=== PATIENT | female | born 1960 | race Caucasian/White ===

== ENCOUNTER 2016-03-31 14:30 | Outpatient (RCR) | payer BC, OTHER ==
--- OUTSIDE RECORDS SUMMARY | 2016-01-13 15:06 | XMS REPORT | Continuity of Care Document ---
Author Author [facility] Organization [facility] Address Unknown Phone Unavailable Care Team Providers Care Family Service Assistant Name Role Phone NO, LOCAL PHYSICIAN PCP Unavailable Insurance Providers Payer Name Policy Number Subscriber Name Relationship [facility] [id number] Barbie Singh 01 Advance Directives Directive Response Recorded Date/Time Advance Directives No 08/31/15 6:49pm Health Care Power of Certified Flight Instructor No 08/31/15 6:49pm Organ Donor No 08/31/15 6:49pm Resuscitation Status Full Code 08/31/15 6:49pm Chief Complaint and Reason for Visit Chief Complaint RESP FAILURE/HYPOVENTILATION SYND/LBBB/CHEST PAIN Reason for Visit Anemia Edema Hyperglycemia Hypoventilation syndrome LBBB (left bundle branch block) Morbid obesity Respiratory failure Uncontrolled hypertension Problems Active Problems Medical Problem Onset Date Status Anemia Unknown Acute Edema Unknown Acute Hyperglycemia Unknown Acute Hypoventilation syndrome Unknown Acute LBBB (left bundle branch block) Unknown Acute Morbid obesity Unknown Acute Respiratory failure Unknown Acute Uncontrolled hypertension Unknown Acute Medications Current Home Medications Medication Dose Units Route Directions Days/Qty Instructions Start Date Lisinopril 20 Mg 20 Mg Oral Daily@0900 30 09/02/15 Aspirin 325 Mg 325 Mg Oral Daily 1 09/02/15 Potassium Chloride 20 Meq 20 Meq Oral Daily@0700 30 09/02/15 Furosemide 40 Mg 40 Mg Oral Daily 60 09/02/15 Past Home Medications Medication Directions Ordered Status Hctz/Lisinopril (Zestoretic) 1 Tab Tablet, 1 Each Oral Daily 12/18/09 Discontinued Metformin Hcl (Glucophage) 1,000 Mg Tablet, 1000 Mg Oral Twice A Day Discontinued Omeprazole 20 Mg Capsule.dr, 20 Mg Oral Daily 12/18/09 Discontinued Diltiazem Hcl (Cardizem Cd) 120 Mg Cap.sr.24h, 120 Mg Oral Daily 12/18/09 Discontinued Pioglitazone Hcl 30 Mg Tab, 30 Mg Oral Daily 12/18/09 Discontinued Meloxicam (Mobic) 15 Mg Tablet, 15 Mg Oral Daily 12/18/09 Discontinued Tramadol Hcl 50 Mg Tab, 50 Mg Oral Every 6 Hours as needed 12/18/09 Discontinued Valsartan 320 Mg Tablet, 320 Mg Oral Daily 12/18/09 Discontinued Nebivolol Hcl 5 Mg Tablet, 1 Each Oral Daily 02/10/10 Discontinued Losartan Potassium 100 Mg Tablet, 100 Mg Oral Daily 02/10/10 Discontinued Simvastatin 20 Mg Tablet, 20 Mg Oral Daily 02/10/10 Discontinued Social History Social History Problem Response Recorded Date/Time Alcohol Use Past History 08/31/2015 6:55pm Recreational Drug Use No 08/31/2015 6:55pm Recent Foreign Travel No 08/31/2015 6:55pm Recent Infectious Disease Exposure No 08/31/2015 6:55pm Hospitalization with Isolation Denies 09/02/2015 12:28pm Sexually Transmitted Disease No 08/31/2015 6:55pm HIV/AIDS No 08/31/2015 6:55pm Smoking Status Former Smoker 08/31/2015 6:52pm Do you dip or chew tobacco? No 08/31/2015 2:13pm Query Response Start Date Stop Date Smoking Status Former Smoker Hospital Discharge Instructions Patient Instructions Physician Instructions Plan of Care/Instructions/FU: Use oxygen by nasal cannula as previously arranged. Medications and treatments as detailed in the discharge sequence Appointment with Dr. Caal in approximately one month Activity as Tolerated: Yes Goal: Maintenance at home Discharge Diet: Regular Diet Return to The Hospital For: Decline in performance Plan of Care Discharge Date 09/02/15 11:50am Disposition 01 HOME, SELF-CARE Instructions/Education Provided Acute Respiratory Distress Syndrome (DC) Prescriptions See Medication Section Additional Instructions/Education Follow up with Dr. Caal on in 1-2 weeks. Please call his office to schedule an appointment. The phone number is [phone]. Care Plan and Goals See Discharge Instructions Section Functional Status Query Response Date Recorded Patient Orientation Person Place Time Situation September 02, 2015 12:28pm Comprehension Ability Understands Concepts September 02, 2015 8:40am Allergies, Adverse Reactions, Alerts No known allergies. Immunizations Name Given Type Hepatitis A No Historical Hepatitis B No Historical Tetanus Booster (TDap) Unknown Historical Vital Signs Acute Vital Signs Vital Response Date/Time Temperature (Fahrenheit) 98.1 degrees F (97.6 - 99.5) 09/02/2015 8:00am Temperature (Calculated Celsius) 36.38157 degrees C (36.4 - 37.5) 09/02/2015 8:00am Temperature Source Tympanic 09/02/2015 8:00am Pulse Rate (adult) 84 bpm (60 - 90) 09/02/2015 8:00am Respiratory Rate 18 bpm (12 - 24) 09/02/2015 8:00am O2 Sat by Pulse Oximetry 96 % (88 - 100) 09/02/2015 8:40am Blood Pressure 135/74 mm Hg 09/02/2015 8:00am Blood Pressure Mean 94 mm Hg 09/02/2015 8:00am Pain Pain Intensity 0 09/02/2015 8:00am Pain Pain Intensity 0 09/02/2015 8:00am Height (Feet) 5 feet 08/31/2015 7:08pm Height (Inches) 3.00 inches 08/31/2015 7:08pm Height (Calculated Centimeters) 160.749462 cm 08/31/2015 7:08pm Weight (Pounds) 247 pounds 09/02/2015 5:50am Weight (Ounces) 2.4 oz 09/02/2015 5:50am Weight (Calculated Grams) 134790.355 gm 09/02/2015 5:50am Weight (Calculated Kilograms) 112.961592 kilograms 09/02/2015 5:50am Calculated BMI 44.1 08/31/2015 7:08pm Results Laboratory Results Test Name Result Units Flags Reference Collection Date/Time Result Date/ Time Comments White Blood Count 8.9 10^3/uL 4.3-11.0 09/01/2015 5:14am 09/01/2015 5: 27am Red Blood Count 3.90 10^6/uL L 4.35-5.85 09/01/2015 5:14am 09/01/2015 5: 27am Hemoglobin 10.6 G/DL L 11.5-16.0 09/01/2015 5:09/01/2015 5:27am Hematocrit 34 % L 35-52 09/01/2015 5:09/01/2015 5:27am Mean Corpuscular Volume 86 FL 80-99 09/01/2015 5:09/01/2015 5: 27am Mean Corpuscular Hemoglobin 27 PG 25-34 09/01/2015 5:09/01/2015 5: 27am Mean Corpuscular Hemoglobin Concent 32 G/DL 32-36 09/01/2015 5:07/2015 5:27am Red Cell Distribution Width 18.6 % H 10.0-14.5 09/01/2015 5:2015 5:27am Platelet Count 262 10^3/uL 130-400 09/01/2015 5:09/01/2015 5:27am Mean Platelet Volume 11.8 FL H 7.4-10.4 09/01/2015 5:09/01/2015 5: 27am Neutrophils (%) (Auto) 93 % H 42-75 09/01/2015 5:09/01/2015 5:27am Lymphocytes (%) (Auto) 6 % L 12-44 09/01/2015 5:09/01/2015 5:27am Monocytes (%) (Auto) 1 % 0-12 09/01/2015 5:09/01/2015 5:27am Eosinophils (%) (Auto) 0 % 0-10 09/01/2015 5:09/01/2015 5:27am Basophils (%) (Auto) 0 % 0-10 09/01/2015 5:09/01/2015 5:27am Neutrophils # (Auto) 8.2 X 10^3 H 1.8-7.8 09/01/2015 5:09/01/2015 5: 27am Lymphocytes # (Auto) 0.5 X 10^3 L 1.0-4.0 09/01/2015 5:09/01/2015 5: 27am Monocytes # (Auto) 0.1 X 10^3 0.0-1.0 09/01/2015 5:09/01/2015 5: 27am Eosinophils # (Auto) 0.0 10^3/uL 0.0-0.3 09/01/2015 5:14am 09/01/2015 5 :27am Basophils # (Auto) 0.0 10^3/uL 0.0-0.1 09/01/2015 5:14am 09/01/2015 5: 27am Neutrophils % (Manual) 95 % 09/01/2015 5:am 09/01/2015 5:43am Band Neutrophils 0 % 09/01/2015 5:14am 09/01/2015 5:43am Lymphocytes % (Manual) 5 % 09/01/2015 5:14am 09/01/2015 5:43am Monocytes % (Manual) 0 % 09/01/2015 5:am 09/01/2015 5:43am Eosinophils % (Manual) 0 % 09/01/2015 5:14am 09/01/2015 5:43am Basophils % (Manual) 0 % 09/01/2015 5:am 09/01/2015 5:43am Anisocytosis SLIGHT 09/01/2015 5:am 09/01/2015 5:43am Prothrombin Time 13.5 SEC 12.2-14.7 08/31/2015 2:15pm 08/31/2015 2: 35pm INR Comment 1.1 0.8-1.4 08/31/2015 2:15pm 08/31/2015 2:35pm INTERPRETIVE DATA SUGGESTED THERAPEUTIC RANGE FOR INR'S: VENOUS THROMBOSIS, PULMONARY EMBOLISM, OR PREVENTION OF SYSTEMIC EMBOLISM (EG. IN ATRIAL FIBRILLATION): 2.0 - 3.0 MECHANICAL PROSTHETIC HEART VALVES: 2.5 - 3.5* *NOTE: INR'S UP TO 4.5 MAY BE NECESSARY IN SELECTED GROUPS OF HIGH RISK PATIENTS. [employer] CONSENSUS CONFERENCE ON ANTITHROMBOTIC THERAPY (2000). Activated Partial Thromboplast Time 31 SEC 24-35 08/31/2015 2:15pm 06/2015 2:35pm Urine Color YELLOW 08/31/2015 3:25pm 08/31/2015 3:42pm Urine Clarity CLEAR 08/31/2015 3:25pm 08/31/2015 3:42pm Urine pH 6 5-9 08/31/2015 3:25pm 08/31/2015 3:42pm Urine Specific [place] 1.020 1.016-1.022 08/31/2015 3:25pm 2015 3:42pm Urine Protein 2+ * NEGATIVE 08/31/2015 3:25pm 08/31/2015 3:42pm Urine Glucose (UA) NEGATIVE NEGATIVE 08/31/2015 3:25pm 08/31/2015 3: 42pm Urine RBC (Auto) NEGATIVE NEGATIVE 08/31/2015 3:25pm 08/31/2015 3: 42pm Urine Ketones NEGATIVE NEGATIVE 08/31/2015 3:25pm 08/31/2015 3:42pm Urine Nitrite NEGATIVE NEGATIVE 08/31/2015 3:25pm 08/31/2015 3:42pm Urine Bilirubin NEGATIVE NEGATIVE 08/31/2015 3:25pm 08/31/2015 3: 42pm Urine Urobilinogen 1 MG/DL NORMAL 08/31/2015 3:25pm 08/31/2015 3:42pm Urine Leukocyte Esterase 1+ * NEGATIVE 08/31/2015 3:25pm 08/31/2015 3: 42pm Urine RBC NONE /HPF 08/31/2015 3:25pm 08/31/2015 3:42pm Urine WBC NONE /HPF 08/31/2015 3:25pm 08/31/2015 3:42pm Urine Bacteria NEGATIVE /HPF 08/31/2015 3:25pm 08/31/2015 3:42pm Urine Squamous Epithelial Cells 5-10 /HPF 08/31/2015 3:25pm 2015 3:42pm Urine Crystals NONE /LPF 08/31/2015 3:25pm 08/31/2015 3:42pm Urine Casts NONE /LPF 08/31/2015 3:25pm 08/31/2015 3:42pm Urine Mucus NEGATIVE /LPF 08/31/2015 3:25pm 08/31/2015 3:42pm Urine Culture Indicated NO 08/31/2015 3:25pm 08/31/2015 3:42pm Sodium Level 140 MMOL/L 135-145 09/01/2015 5:14am 09/01/2015 5:46am Potassium Level 4.0 MMOL/L 3.6-5.0 09/01/2015 5:14am 09/01/2015 5:46am Chloride Level 102 MMOL/L 98-107 09/01/2015 5:14am 09/01/2015 5:46am Carbon Dioxide Level 25 MMOL/L 21-32 09/01/2015 5:09/01/2015 5: 46am Anion Gap 13 MMOL/L 5-14 09/01/2015 5:09/01/2015 5:46am Blood Urea Nitrogen 20 MG/DL H 7-18 09/01/2015 5:1409/01/2015 5:46am Creatinine 1.39 MG/DL H 0.60-1.30 09/01/2015 5:09/01/2015 5:46am BUN/Creatinine Ratio 09/01/2015 5:09/01/2015 5:46am Estimat Glomerular Filtration Rate 40 09/01/2015 5:09/01/2015 5:46am GFR INTERPRETIVE DATA UNITS FOR ESTIMATED GFR (eGFR): mL/min/1.73 M2 REFERENCE RANGE FOR ESTIMATED GFR (eGFR) eGFR NORMAL eGFR >60 MODERATELY DECREASED eGFR 30-59 SEVERLY DECREASED eGFR 15-29 KIDNEY FAILURE <15 (OR DIALYSIS) Glucose Level 205 MG/DL H 70-105 09/01/2015 5:09/01/2015 5:46am Glucometer 145 MG/DL H 70-110 09/02/2015 6:0409/02/2015 6:23am Calcium Level 9.0 MG/DL 8.5-10.1 09/01/2015 5:09/01/2015 5:46am Magnesium Level 2.2 MG/DL 1.8-2.4 08/31/2015 2:15pm 08/31/2015 2:44pm Total Bilirubin 0.4 MG/DL 0.1-1.0 09/01/2015 5:09/01/2015 5:46am Alkaline Phosphatase 99 U/L 40-136 09/01/2015 5:09/01/2015 5:46am Aspartate Amino Transf (AST/SGOT) 34 U/L 5-34 09/01/2015 5:2015 5:46am Alanine Aminotransferase (ALT/SGPT) 36 U/L 0-55 09/01/2015 5:1408/31 5:46am Total Creatine Kinase 135 U/L 29-168 08/31/2015 2:15pm 08/31/2015 2: 44pm Creatine Kinase MB 2.2 NG/ML <6.6 08/31/2015 2:15pm 08/31/2015 2:49pm Troponin I < 0.30 NG/ML <0.30 08/31/2015 2:15pm 08/31/2015 2:49pm Troponin I < 0.30 NG/ML <0.30 09/01/2015 2:25am 09/01/2015 2:51am Troponin I < 0.30 NG/ML <0.30 09/01/2015 7:47am 09/01/2015 8:47am Myoglobin 71.0 NG/ML 10.0-92.0 08/31/2015 8:00pm 08/31/2015 8:33pm B-Type Natriuretic Peptide 245.3 PG/ML H <100.0 08/31/2015 2:15pm 2015 3:09pm Total Protein 7.4 G/DL 6.4-8.2 09/01/2015 5:09/01/2015 5:46am Albumin 3.9 G/DL 3.2-4.5 09/01/2015 5:09/01/2015 5:46am Triglycerides Level 62 MG/DL <150 09/01/2015 5:09/01/2015 5:46am Cholesterol Level 167 MG/DL < 200 09/01/2015 5:09/01/2015 5:46am HDL Cholesterol 36 MG/DL L 40-60 09/01/2015 5:09/01/2015 5:46am LDL Cholesterol Direct 122 MG/DL 1-129 09/01/2015 5:09/01/2015 5: 46am VLDL Cholesterol 12 MG/DL 5-40 09/01/2015 5:09/01/2015 5:46am Amylase Level 45 U/L 25-125 08/31/2015 2:15pm 08/31/2015 2:44pm Lipase 22 U/L 8-78 08/31/2015 2:15pm 08/31/2015 2:44pm Hemoglobin A1c 6.4 % H 4.5-6.2 09/01/2015 5:1409/01/2015 6:20am Arterial Blood pH 7.42 7.37-7.43 08/31/2015 5:25pm 08/31/2015 5:36pm Arterial Blood Partial Pressure CO2 43 MMHG 35-45 08/31/2015 5:25pm 06/2015 5:36pm Arterial Blood Partial Pressure O2 73 MMHG L 79-93 08/31/2015 5:25pm 06/2015 5:36pm Arterial Blood HCO3 27 MMOL/L 23-27 08/31/2015 5:25pm 08/31/2015 5: 36pm Arterial Blood Total CO2 28.0 MMOL/L 21.0-31.0 08/31/2015 5:25pm 2015 5:36pm Arterial Blood Base Excess 2.0 MMOL/L -2.5-2.5 08/31/2015 5:25pm 2015 5:36pm Arterial Blood Oxygen Saturation 95 % 94-100 08/31/2015 5:25pm 2015 5:36pm Blood Gas Puncture Site RT RAD 08/31/2015 5:25pm 08/31/2015 5:36pm Sandor Test YES-POS 08/31/2015 5:25pm 08/31/2015 5:36pm Blood Gas Inspired Oxygen ROOM AIR 08/31/2015 5:25pm 08/31/2015 5: 36pm Blood Gas Ventilator Setting NO 08/31/2015 5:25pm 08/31/2015 5: 36pm Blood Gas Patient Temperature 99.0 08/31/2015 5:25pm 08/31/2015 5: 36pm Procedures Procedure Status Date Provider(s) Tracing only of electrocardiogram Completed 08/31/15 ROWDY PSARKS DO Tracing only of electrocardiogram Completed 08/31/15 PLACIDO WILL MD Tracing only of electrocardiogram Completed 08/31/15 PLACIDO WILL MD Tracing only of electrocardiogram Completed 08/31/15 PLACIDO WILL MD Color Doppler echocardiography Completed 09/01/15 PLACIDO WILL MD Encounters Encounter Location Arrival/Admit Date Discharge/Depart Date Attending Provider Discharged Inpatient [facility] 08/31/15 5:00pm 11:50am PLACIDO WILL MD Recent Diagnosis Anemia Edema Hyperglycemia Hypoventilation syndrome LBBB (left bundle branch block) Morbid obesity Respiratory failure Uncontrolled hypertension
[~2016-03-31 14:30] MED LIST: ASPI-808 PO; ASPI325T32 PO; CETI10CA PO; CHOL500044 PO; DILT120C PO; FERR-74 PO; FLUT1BLS IH; FURO-124 PO; FURO40TA4 PO; LINA5TAB PO; LISI-552 PO; LISI-556 PO; LISI1TAB10 PO; LOSA100T7 PO; MELO-195 PO; METF-380 PO; METO-270 PO; METO100T6 PO; MONT10TA21 PO; MULT-116 PO; MULT-35 PO; NEBI5TAB8 PO; OMEP-10 PO; OMEP20CA12 PO; PGLT30T PO; POTA10CA43 PO; POTA20TA8 PO; PRD20T PO; RT-ALBUINH IH; SIMV20TA3 PO; TRM50T PO; UMEC62.5 IH; VALS320T8 PO
== END 2016-04-12 | disposition home or self-care (01) ==
LOC: PULM 14:30
PROVIDERS: ATTEND Nurse Practitioner Family
DX: R09.02 Hypoxemia (principal); J44.9 Chronic obstructive pulmonary disease, unspecified; G47.33 Obstructive sleep apnea (adult) (pediatric)
CPT/HCPCS: 99211

== ENCOUNTER → 2016-04-02 | Outpatient (CLI) | payer OTHER ==
--- OUTSIDE RECORDS SUMMARY | 2016-04-02 14:20 | XMS REPORT | Continuity of Care Document ---
Author Author [facility] Organization [facility] Address Unknown Phone Unavailable Care Team Providers Care Warehouse Person Name Role Phone CHARO HAQ MD PCP Insurance Providers Payer Name Policy Number Subscriber Name Relationship [facility] [id number] Chidi Callejas Self Pay Pending Nina Apprv [id number] Carol Callejas 20 Self / Same As Patient Advance Directives Directive Response Recorded Date/Time Advance Directives No 03/11/16 7:54am Health Care Power of Impregnator [employer] No 03/11/16 7:54am Organ Donor No 03/11/16 7:54am Resuscitation Status Full Code 03/11/16 7:54am Problems Active Problems Medical Problem Onset Date Status Acute cholecystitis Unknown Acute Anemia Unknown Acute Chronic anemia Unknown Acute Congestive heart failure Unknown Chronic Edema Unknown Acute Hyperglycemia Unknown Acute Hypoventilation syndrome Unknown Acute LBBB (left bundle branch block) Unknown Acute Medical non-compliance Unknown Acute Morbid obesity Unknown Chronic Renal failure Unknown Acute Respiratory failure Unknown Acute Uncontrolled hypertension Unknown Acute Medications Current Home Medications Medication Dose Units Route Directions Days/Qty Instructions Start Date Omeprazole 20 Mg 20 Mg Oral Daily 10/21/15 Aspirin 325 Mg 325 Mg Oral Daily 10/22/15 Metoprolol Succinate 25 Mg 25 Mg Oral Daily 60 10/26/15 Past Home Medications Medication Directions Ordered Status [...] Tablet, 20 Mg Oral Daily 02/10/10 Discontinued Lisinopril 20 Mg Tablet, 20 Mg Oral Daily@0900 09/02/15 Discontinued Aspirin 325 Mg Tablet.dr, 325 Mg Oral Daily 09/02/15 Discontinued Potassium Chloride 20 Meq Tab.er.prt, 20 Meq Oral Daily@0700 09/02/15 Discontinued Furosemide 40 Mg Tablet, 40 Mg Oral Daily 09/02/15 Discontinued Multivitamin 1 Each Tablet, 1 Tab Oral Daily 10/22/15 Discontinued Lisinopril 20 Mg Tablet, 20 Mg Oral Daily 10/22/15 Discontinued Furosemide 40 Mg Tablet, 40 Mg Oral Daily 10/22/15 Discontinued Potassium Chloride 20 Meq Tab.er.prt, 20 Meq Oral Daily 10/22/15 Discontinued Social History Social History Problem Response Recorded Date/Time Alcohol Use Past History 10/21/2015 8:00pm Recreational Drug Use No 10/21/2015 8:00pm Recent Foreign Travel No 03/11/2016 7:51am Recent Infectious Disease Exposure No 03/11/2016 7:51am Sexually Transmitted Disease No 03/11/2016 7:54am HIV/AIDS No 03/11/2016 7:54am Smoking Status Former Smoker 03/11/2016 7:54am Do you dip or chew tobacco? No 08/31/2015 2:13pm Recent Hopitalizations No 03/11/2016 7:54am Sexually Transmitted Disease No 03/11/2016 7:54am Hx Sexually Transmitted Disorders No 02/13/2010 3:10pm Query Response Start Date Stop Date Smoking Status Former Smoker Hospital Discharge Instructions No hospital discharge instructions. Plan of Care Discharge Date 03/11/16 9:40am Instructions/Education Provided Bronchoscopy, Diagnostic Prescriptions See Medication Section Functional Status No functional status results. Allergies, Adverse Reactions, Alerts No known allergies. Immunizations No immunization records. Vital Signs Acute Vital Signs Vital Response Date/Time Temperature (Fahrenheit) 97.1 degrees F (97.6 - 99.5) 03/11/2016 9:37am Temperature (Calculated Celsius) 36.45182 degrees C (36.4 - 37.5) 03/11/2016 9:37am Temperature Source Tympanic 03/11/2016 9:37am Pulse Rate (adult) 50 bpm (60 - 90) 03/11/2016 9:37am Respiratory Rate 18 bpm (12 - 24) 03/11/2016 9:37am O2 Sat by Pulse Oximetry 99 % (88 - 100) 03/11/2016 9:37am Blood Pressure 179/78 mm Hg 03/11/2016 9:37am Blood Pressure Mean 125 mm Hg 03/11/2016 7:43am Pain Numeric Pain Scale 0-No Pain 03/11/2016 9:37am Pain Intensity 0 03/11/2016 9:15am Height (Feet) 5 feet 03/11/2016 7:48am Height (Inches) 3.00 inches 03/11/2016 7:48am Height (Calculated Centimeters) 160.420508 cm 03/11/2016 7:48am Weight (Pounds) 237 pounds 03/11/2016 7:48am Weight (Ounces) 0.0 oz 03/11/2016 7:48am Weight (Calculated Grams) 443865.39 gm 03/11/2016 7:48am Weight (Calculated Kilograms) 107.804802 kilograms 03/11/2016 7:48am Calculated BMI 42.0 03/11/2016 7:48am Results Pending Laboratory Results Test Name Collection Date/Time Procedures Procedure Status Date Provider(s) Interventional bronchoscopy Completed 03/11/16 ELOISE GAMEZ DO Encounters Encounter Location Arrival/Admit Date Discharge/Depart Date Attending Provider Registered [facility] Day [facility] 03/11/16 6:58am ELOISE GAMEZ DO Registered Clinic [facility] 03/10/16 10:30am ELOISE GAMEZ DO Registered Clinic [facility] 03/09/16 12:46pm SHAWN CAI MD Registered Clinic [facility] 03/04/16 1:27pm ELOISE GAMEZ DO Registered Clinic [facility] 03/03/16 2:59pm YOSHI CAI MD Registered Recurring [facility] 02/27/16 2:30pm CHRISTIAN HUBBARD APRN Registered Clinic [facility] 02/27/16 2:22pm ELOISE GAMEZ DO
== END ==
LOC: LAB 14:15
PROVIDERS: ATTEND Family Medicine
DX: J44.9 Chronic obstructive pulmonary disease, unspecified (principal); Z99.81 Dependence on supplemental oxygen
CPT/HCPCS: 36415; 82103

== ENCOUNTER → 2016-04-14 | Outpatient (CLI) | payer OTHER ==
--- OUTSIDE RECORDS SUMMARY | 2016-04-14 15:28 | XMS REPORT | Continuity of Care Document ---
Author Author [facility] Organization [facility] Address Unknown Phone Unavailable Care Team Providers Care Furnace Maintenance Name Role Phone CHARO HAQ MD PCP Insurance Providers Payer Name Policy Number Subscriber Name Relationship [facility] [id number] Chidi Callejas Self Pay Pending Nina Apprv [id number] Carol Callejas 20 Self / Same As Patient Advance Directives Directive Response Recorded Date/Time Advance Directives No 03/11/16 7:54am Health Care Power of Supervising Bailiff No 03/11/16 7:54am Organ Donor No 03/11/16 [...] - 99.5) 03/11/2016 9:37am Temperature (Calculated Celsius) 36.58610 degrees C (36.4 - 37.5) 03/11/2016 9:37am [...] 3.00 inches 03/11/2016 7:48am Height (Calculated Centimeters) 160.465523 cm 03/11/2016 7:48am Weight (Pounds) 237 pounds 03/11/2016 7:48am Weight (Ounces) 0.0 oz 03/11/2016 7:48am Weight (Calculated Grams) 696490.39 gm 03/11/2016 7:48am Weight (Calculated Kilograms) 107.451713 kilograms 03/11/2016 7:48am Calculated BMI 42.0 03/11/2016 7:48am Results Pending Laboratory Results Test Name Collection Date/Time Procedures Procedure Status Date Provider(s) Interventional bronchoscopy Completed 03/11/16 ELOISE GAMEZ DO Encounters Encounter Location Arrival/Admit Date Discharge/Depart Date Attending Provider Registered [facility] Day Care [facility] 03/11/16 6:58am ELOISE GAMEZ DO Registered Clinic [facility] 03/10/16 10:30am ELOISE GAMEZ DO Registered Clinic [facility] 03/09/16 12:46pm SHAWN CAI MD Registered Clinic [facility] 03/04/16 1:27pm ELOISE GAMEZ DO Registered Clinic [facility] 03/03/16 2:59pm YOSHI CAI MD Registered Recurring [facility] 02/27/16 2:30pm CHRISTIAN HUBBARD APRN Registered Clinic [facility] 02/27/16 2:22pm ELOISE GAMEZ DO
[2016-04-14 15:58] LABS: CALCIUM 9.7 MG/DL (8.5-10.1); CREATININE SERUM 1.27 MG/DL (0.60-1.30); MAGNESIUM 2.3 MG/DL (1.8-2.4); POTASSIUM 4.6 MMOL/L (3.6-5.0)
== END ==
LOC: LAB 15:24
PROVIDERS: ATTEND Nurse Practitioner Family
DX: N18.3 Chronic kidney disease, stage 3 (moderate) (principal)
CPT/HCPCS: 36415; 80048; 83735

== ENCOUNTER → 2016-04-30 | Outpatient (CLI) | payer OTHER ==
[~2016-04-30] MED LIST changes: +BARIUM SUSPENSION 105% (LIQUID POLIBAR PLUS) 240 ML/DOSE PO ONE; +BARIUM SUSPENSION 60% (LIQUID EZ PAQUE) 240 ML DOSE PO ONE
--- OUTSIDE RECORDS SUMMARY | 2016-04-30 08:59 | XMS REPORT | Continuity of Care Document ---
Author Author [facility] Organization [facility] Address Unknown Phone Unavailable Care Team Providers Care Tool And Gauge Inspector Name Role Phone CHARO HAQ MD PCP Insurance Providers Payer Name Policy Number Subscriber Name Relationship [facility] [id number] Chidi Callejas Self Pay Pending Nina Apprv [id number] Carol Callejas 20 Self / Same As Patient Advance Directives Directive Response Recorded Date/Time Advance Directives No 03/11/16 7:54am Health Care Power of Central Supply Technician Supervisor No 03/11/16 7:54am Organ Donor No 03/11/16 [...] - 99.5) 03/11/2016 9:37am Temperature (Calculated Celsius) 36.33294 degrees C (36.4 - 37.5) 03/11/2016 9:37am [...] 3.00 inches 03/11/2016 7:48am Height (Calculated Centimeters) 160.311146 cm 03/11/2016 7:48am Weight (Pounds) 237 pounds 03/11/2016 7:48am Weight (Ounces) 0.0 oz 03/11/2016 7:48am Weight (Calculated Grams) 030038.39 gm 03/11/2016 7:48am Weight (Calculated Kilograms) 107.532049 kilograms 03/11/2016 7:48am Calculated BMI 42.0 03/11/2016 7:48am Results Pending Laboratory Results Test Name Collection Date/Time Procedures Procedure Status Date Provider(s) Interventional bronchoscopy Completed 03/11/16 ELOISE GAMEZ DO Encounters Encounter Location Arrival/Admit Date Discharge/Depart Date Attending Provider Registered [facility] Day [facility] 03/11/16 6:58am ELOISE GAMEZ DO Registered Clinic [facility] 03/10/16 10:30am ELOISE GAMEZ DO Registered Clinic [facility] 03/09/16 12:46pm SHAWN CAI MD Registered Clinic [facility] 03/04/16 1:27pm ELOISE GAMEZ DO Registered Clinic [facility] 03/03/16 2:59pm YOSHI CAI MD Registered Recurring [facility] 02/27/16 2:30pm CHRISTIAN HUBBARD APRN Registered Clinic [facility] 02/27/16 2:22pm ELOISE GAMEZ DO
--- NOTE | 2016-04-30 10:48 | Diagnostic Imaging Report ---
EXAMINATION: Barium swallow double-contrast. INDICATION: Dysphagia Fluoroscopy time: 52 seconds TECHNIQUE: Child Care Development Specialist image of the chest was performed. Subsequently, the patient was given gas forming granules for oral ingestion followed by thick and thin barium to drink. Swallowing through the esophagus was observed with fluoroscopy and overhead images, as well as multiple spot images in the upright and prone positions, were taken. FINDINGS: Child Care Development Specialist image of the chest demonstrate no significant abnormality. No significant reflux is seen during the study. Normal motility seen. There is a gastric band seen in the proximal stomach with free flow of a barium through the gastric band into the distal stomach. The esophagus is normal in caliber and contour. There is no mucosal abnormality, diverticulum or filling defect to suggest a mass. There is a small hiatal hernia demonstrated. IMPRESSION: Small hiatal hernia. Dictated by: Dictated on workstation # [id number]
== END ==
LOC: RAD 08:55
PROVIDERS: ATTEND Nurse Practitioner
DX: K44.9 Diaphragmatic hernia without obstruction or gangrene (principal); R13.10 Dysphagia, unspecified
CPT/HCPCS: 74220

== ENCOUNTER → 2016-06-11 | Outpatient (CLI) | payer OTHER ==
[~2016-06-11] MED LIST changes: -BARIUM SUSPENSION 105% (LIQUID POLIBAR PLUS) 240 ML/DOSE PO ONE; -BARIUM SUSPENSION 60% (LIQUID EZ PAQUE) 240 ML DOSE PO ONE
--- OUTSIDE RECORDS SUMMARY | 2016-06-11 10:48 | XMS REPORT | Continuity of Care Document ---
Author Author [facility] Organization [facility] Address Unknown Phone Unavailable Care Team Providers Care Branch Manager Trainee Name Role Phone CHARO HAQ MD PCP Insurance Providers Payer Name Policy Number Subscriber Name Relationship [facility] [id number] Chidi Callejas Self Pay Pending Nina [employer]rv [id number] Carol Callejas 20 Self / Same As Patient Advance Directives Directive Response Recorded Date/Time Advance Directives No 03/11/16 7:54am Health Care Power of [place] No 03/11/16 7:54am Organ Donor No 03/11/16 [...] - 99.5) 03/11/2016 9:37am Temperature (Calculated Celsius) 36.71328 degrees C (36.4 - 37.5) 03/11/2016 9:37am [...] 3.00 inches 03/11/2016 7:48am Height (Calculated Centimeters) 160.244948 cm 03/11/2016 7:48am Weight (Pounds) 237 pounds 03/11/2016 7:48am Weight (Ounces) 0.0 oz 03/11/2016 7:48am Weight (Calculated Grams) 721943.39 gm 03/11/2016 7:48am Weight (Calculated Kilograms) 107.362993 kilograms 03/11/2016 7:48am Calculated BMI 42.0 03/11/2016 7:48am Results Pending Laboratory Results Test Name Collection Date/Time Procedures Procedure Status Date Provider(s) Interventional bronchoscopy Completed 03/11/16 ELOISE GAMEZ DO Encounters Encounter Location Arrival/Admit Date Discharge/Depart Date Attending Provider Registered [facility] Day Care [facility] 03/11/16 6:58am ELOISE GAMEZ DO Registered Clinic [facility] 03/10/16 10:30am ELOISE GAMEZ DO Registered Clinic [facility] 03/09/16 12:46pm SHAWN CAI MD Registered Clinic [facility] 03/04/16 1:27pm ELOISE GAMEZ DO Registered Clinic [facility] 03/03/16 2:59pm YOSHI CAI MD Registered Recurring [facility] 02/27/16 2:30pm CHRISTIAN HUBBARD APRN Registered Clinic [facility] 02/27/16 2:22pm ELOISE GAMEZ DO
[2016-06-11 11:28] LABS: CHOLESTEROL 184 MG/DL (< 200); DIRECT LDL 113 MG/DL (1-129); TRIGLYCERIDES 125 MG/DL (<150); VLDL CHOLESTEROL 25 MG/DL (5-40)
== END ==
LOC: LAB 10:44
PROVIDERS: ATTEND Family Medicine
DX: E11.8 Type 2 diabetes mellitus with unspecified complications (principal); R94.5 Abnormal results of liver function studies
CPT/HCPCS: 36415; 80061

== ENCOUNTER 2016-06-30 14:30 | Outpatient (RCR) | payer OTHER ==
--- OUTSIDE RECORDS SUMMARY | 2016-05-28 14:40 | XMS REPORT | Continuity of Care Document ---
Author Author [facility] Organization [facility] Address Unknown Phone Unavailable Care Team Providers Care Precision Printing Worker Name Role Phone CHARO HAQ MD PCP Insurance Providers Payer Name Policy Number Subscriber Name Relationship [facility] [id number] Chidi Callejas Self Pay Pending Nina [employer]rv [id number] Carol Callejas 20 Self / Same As Patient Advance Directives Directive Response Recorded Date/Time Advance Directives No 03/11/16 7:54am Health Care Power of Yeast Pumper No 03/11/16 7:54am Organ Donor No 03/11/16 [...] - 99.5) 03/11/2016 9:37am Temperature (Calculated Celsius) 36.69972 degrees C (36.4 - 37.5) 03/11/2016 9:37am [...] 3.00 inches 03/11/2016 7:48am Height (Calculated Centimeters) 160.914312 cm 03/11/2016 7:48am Weight (Pounds) 237 pounds 03/11/2016 7:48am Weight (Ounces) 0.0 oz 03/11/2016 7:48am Weight (Calculated Grams) 463959.39 gm 03/11/2016 7:48am Weight (Calculated Kilograms) 107.499292 kilograms 03/11/2016 7:48am Calculated BMI 42.0 03/11/2016 7:48am Results Pending Laboratory Results Test Name Collection Date/Time Procedures Procedure Status Date Provider(s) Interventional bronchoscopy Completed 03/11/16 ELOISE GAMEZ DO Encounters Encounter Location Arrival/Admit Date Discharge/Depart Date Attending Provider Registered [facility] Day Care [facility] 03/11/16 6:58am ELOISE GAMEZ DO Registered Clinic [facility] 03/10/16 10:30am ELOISE GAMEZ DO Registered Clinic [facility] 03/09/16 12:46pm SHAWN CAI MD Registered Clinic [facility] 03/04/16 1:27pm ELOISE GAMEZ DO Registered Clinic [facility] 03/03/16 2:59pm YOSHI CAI MD Registered Recurring [facility] 02/27/16 2:30pm CHRISTIAN HUBBARD APRN Registered Clinic [facility] 02/27/16 2:22pm ELOISE GAMEZ DO
== END 2016-08-26 | disposition home or self-care (01) ==
LOC: PULM 14:30
PROVIDERS: ATTEND Nurse Practitioner Family
DX: R09.02 Hypoxemia (principal); J44.9 Chronic obstructive pulmonary disease, unspecified; G47.33 Obstructive sleep apnea (adult) (pediatric)

== ENCOUNTER → 2016-07-07 | Outpatient (CLI) | payer OTHER ==
[2016-07-07 15:42] LABS: CALCIUM 9.1 MG/DL (8.5-10.1); CREATININE SERUM 1.32 MG/DL (0.60-1.30); MAGNESIUM 1.9 MG/DL (1.8-2.4); POTASSIUM 4.1 MMOL/L (3.6-5.0)
--- NOTE | 2016-07-08 08:12 | ECHOCARDIOGRAPHY REPORT ---
PROCEDURE PHYSICIAN: STANLEY GUTIERREZ DATE OF PROCEDURE: 07/07/2016 TWO DIMENSIONAL ECHOCARDIOGRAM REPORT PRIMARY PHYSICIAN: Dr. Steve Wahl OTHER PHYSICIAN: REFERRING PHYSICIAN: ORDERING PHYSICIAN: ATTENDING PHYSICIAN: Pretty Christiansen APRN FAMILY PHYSICIAN: READING PHYSICIAN: INDICATION FOR THE PROCEDURE: Acute systolic congestive heart failure. MEASUREMENTS DERIVED VALUES LV DIAMETER (LAX) NORMALS NORMALS Diastolic (3.6-5.2) Eject. Fract. (60%+/-6%) Systolic (2.3-3.9) Diastolic Vol. % Shortening (0.22-0.42) Systolic Vol. Aortic Root IVS THICKNESS Diastolic (0.6-1.1) LVPW THICKNESS Diastolic (0.6-1.1) LA DIAMETER Systolic (2.1-3.7) FINDINGS: 1. Sinus rhythm. 2. Left atrial dimensions are normal. 3. Aortic root dimensions are normal. 4. Left ventricular systolic function is preserved. Left ventricular ejection fraction is 60%. No LVH is present. 5. There is suspicion for mild inferior hypokinesis on parasternal short axis. Other valdez have normal wall motion. 6. Right heart dimensions are normal. Right ventricular systolic function is preserved. 7. There is small pericardial effusion. 8. There is mild diastolic dysfunction. 9. IVC is normal. VALVULAR STRUCTURE OF THE HEART: There is trace tricuspid regurgitation with RVSP of 21 mmHg. There is mild mitral regurgitation. There is no significant aortic or pulmonic valve pathology. CONCLUSION: 1. LV and RV size and function is normal. 2. LV EF 60%. 3. There is suspicion of inferior hypokinesis on parasternal short axis view. 4. There is mild diastolic dysfunction. 5. No significant valvular heart disease. 6. PA pressure is normal. Job ID: [id number] Dictated Date: 07/07/2016 16:08:10 Screen Making Supervisor Date: 07/08/2016 07:55:54 / [email or web address]
== END ==
LOC: CARD 14:43
PROVIDERS: ATTEND Nurse Practitioner Family
DX: I50.23 Acute on chronic systolic (congestive) heart failure (principal); I42.0 Dilated cardiomyopathy
CPT/HCPCS: 36415; 80048; 83735; 93306

== ENCOUNTER → 2016-07-07 | Outpatient (CLI) | payer OTHER ==
[2016-07-07 15:27] LABS: BILIRUBIN,URINE NEGATIVE (NEGATIVE); KETONES,URINE NEGATIVE (NEGATIVE); LEUKOCYTE ESTERASE ,URINE NEGATIVE (NEGATIVE); NITRITE,URINE NEGATIVE (NEGATIVE); PH,URINE 5 (5-9); PROTEIN,URINE NEGATIVE (NEGATIVE); UROBILINOGEN,URINE NORMAL (NORMAL)
[2016-07-07 15:28] LABS: MEAN PLATELET VOLUME 10.8 FL (7.4-10.4); RED BLOOD COUNT 3.75 10^6/uL (4.35-5.85); RED CELL DISTRIBUTION WIDTH 18.7 % (10.0-14.5); WHITE BLOOD COUNT 7.7 10^3/uL (4.3-11.0)
[2016-07-07 15:45] LABS: ALBUMIN 3.9 G/DL (3.2-4.5); CREATININE SERUM 1.33 MG/DL (0.60-1.30); PHOSPHORUS 3.2 MG/DL (2.3-4.7); POTASSIUM 4.1 MMOL/L (3.6-5.0)
[2016-07-07 16:01] LABS: SQUAMOUS EPITHELIAL CELL,UR RARE /HPF; WBC,URINE RARE /HPF
[2016-07-08 07:59] LABS: CALCIUM PARA THYROID HORMONE 9.2 mg/dL (8.5-10.5)
== END ==
LOC: LAB 14:49
PROVIDERS: ATTEND Internal Medicine Nephrology
DX: N17.9 Acute kidney failure, unspecified (principal); I13.0 Hypertensive heart and chronic kidney disease with heart failure and stage 1 through stage 4 chronic kidney disease, or unspecified chronic kidney disease; N18.3 Chronic kidney disease, stage 3 (moderate); E11.9 Type 2 diabetes mellitus without complications; I50.9 Heart failure, unspecified; G47.33 Obstructive sleep apnea (adult) (pediatric); D64.9 Anemia, unspecified; R60.9 Edema, unspecified
CPT/HCPCS: 36415; 80069; 81000; 82306; 82570; 83970; 84156; 85027

== ENCOUNTER → 2016-07-31 | Outpatient (CLI) | payer OTHER ==
[2016-07-31 14:44] LABS: MEAN PLATELET VOLUME 10.6 FL (7.4-10.4); RED BLOOD COUNT 3.63 10^6/uL (4.35-5.85); RED CELL DISTRIBUTION WIDTH 17.2 % (10.0-14.5); WHITE BLOOD COUNT 12.1 10^3/uL (4.3-11.0)
[2016-07-31 15:30] LABS: CALCIUM 10.4 MG/DL (8.5-10.1); CREATININE SERUM 1.45 MG/DL (0.60-1.30); PHOSPHORUS 3.7 MG/DL (2.3-4.7); POTASSIUM 4.6 MMOL/L (3.6-5.0)
[2016-07-31 21:39] LABS: URINE CREATININE 47 mg/dL
[2016-08-03 08:02] LABS: MICROALBUMIN/CREATININE RATIO <4.3 mg/gCR (0.0-30.0)
== END ==
LOC: LAB 14:23
PROVIDERS: ATTEND Internal Medicine Nephrology
DX: N17.9 Acute kidney failure, unspecified (principal); I13.0 Hypertensive heart and chronic kidney disease with heart failure and stage 1 through stage 4 chronic kidney disease, or unspecified chronic kidney disease; I50.9 Heart failure, unspecified; N18.3 Chronic kidney disease, stage 3 (moderate); E11.22 Type 2 diabetes mellitus with diabetic chronic kidney disease; D64.9 Anemia, unspecified; R60.9 Edema, unspecified; G47.33 Obstructive sleep apnea (adult) (pediatric)
CPT/HCPCS: 36415; 80069; 82043; 85027

== ENCOUNTER → 2016-08-07 | Outpatient (CLI) | payer OTHER ==
[2016-08-07 12:40] LABS: BILIRUBIN,URINE NEGATIVE (NEGATIVE); KETONES,URINE NEGATIVE (NEGATIVE); LEUKOCYTE ESTERASE ,URINE NEGATIVE (NEGATIVE); NITRITE,URINE NEGATIVE (NEGATIVE); PH,URINE 6.5 (5-9); PROTEIN,URINE NEGATIVE (NEGATIVE); UROBILINOGEN,URINE NORMAL (NORMAL)
[2016-08-07 12:52] LABS: HYALINE CASTS, URINE RARE /LPF; SQUAMOUS EPITHELIAL CELL,UR RARE /HPF
[2016-08-07 21:56] LABS: URINE CREATININE 45 mg/dL
[2016-08-08 07:21] LABS: MICROALBUMIN/CREATININE RATIO <4.4 mg/gCR (0.0-30.0)
== END ==
LOC: LAB 12:24
PROVIDERS: ATTEND Internal Medicine Nephrology
DX: N17.9 Acute kidney failure, unspecified (principal); N18.3 Chronic kidney disease, stage 3 (moderate); I13.0 Hypertensive heart and chronic kidney disease with heart failure and stage 1 through stage 4 chronic kidney disease, or unspecified chronic kidney disease; I50.9 Heart failure, unspecified; E11.22 Type 2 diabetes mellitus with diabetic chronic kidney disease; D64.9 Anemia, unspecified; R60.9 Edema, unspecified; G47.33 Obstructive sleep apnea (adult) (pediatric)
CPT/HCPCS: 36415; 81000; 82043

== ENCOUNTER → 2016-08-28 | Outpatient (CLI) | payer OTHER ==
[~2016-08-28] MED LIST changes: +RT-ALBUTEROL SULF 2.5 MG/3 ML PRE-MIX VIAL IH ONE
--- NOTE | 2016-08-28 15:41 | Diagnostic Imaging Report ---
INDICATION: Shortness of breath with cough. COMPARISON: 04/30/2016. FINDINGS: PA and lateral views show the lungs to be well-aerated and clear. The heart is not enlarged. Pulmonary vasculature is normal. No pneumothorax or pleural effusion. IMPRESSION: Normal PA and lateral chest. Dictated by: Dictated on workstation # [id number]
== END ==
LOC: RT 13:11
PROVIDERS: ATTEND Allergy & Immunology
DX: J84.115 Respiratory bronchiolitis interstitial lung disease (principal)
CPT/HCPCS: 71020; 94060; 94640; 94726; 94729

== ENCOUNTER → 2016-09-04 | Outpatient (CLI) | payer OTHER ==
[~2016-09-04] MED LIST changes: -RT-ALBUTEROL SULF 2.5 MG/3 ML PRE-MIX VIAL IH ONE
[2016-09-04 11:20] LABS: BASOPHILS % (AUTO) 0 % (0-10); EOSINOPHILS # (AUTO) 0.1 10^3/uL (0.0-0.3); EOSINOPHILS % (AUTO) 2 % (0-10); LYMPHOCYTES # (AUTO) 2.3 X 10^3 (1.0-4.0); LYMPHOCYTES % (AUTO) 37 % (12-44); MEAN CORPUSCULAR HEMOGLOBIN 33 PG (25-34); MEAN CORPUSCULAR HGB CONC 32 G/DL (32-36); MEAN CORPUSCULAR VOLUME 103 FL (80-99); MONOCYTES # (AUTO) 0.7 X 10^3 (0.0-1.0); MONOCYTES % (AUTO) 11 % (0-12); NEUTROPHILS # (AUTO) 3.2 X 10^3 (1.8-7.8); NEUTROPHILS % (AUTO) 50 % (42-75); PLATELET COUNT 220 10^3/uL (130-400); RED BLOOD COUNT 3.29 10^6/uL (4.35-5.85); RED CELL DISTRIBUTION WIDTH 16.7 % (10.0-14.5); WHITE BLOOD COUNT 6.3 10^3/uL (4.3-11.0)
[2016-09-04 11:32] LABS: BILIRUBIN,URINE NEGATIVE (NEGATIVE); KETONES,URINE NEGATIVE (NEGATIVE); LEUKOCYTE ESTERASE ,URINE 1+ (NEGATIVE); NITRITE,URINE NEGATIVE (NEGATIVE); PH,URINE 6 (5-9); PROTEIN,URINE NEGATIVE (NEGATIVE); UROBILINOGEN,URINE NORMAL (NORMAL)
[2016-09-04 11:41] LABS: ERYTHROCYTE SEDIMENTATION RATE 44 MM/HR (0-30)
[2016-09-04 11:48] LABS: CREATININE SERUM 1.23 MG/DL (0.60-1.30); POTASSIUM 3.8 MMOL/L (3.6-5.0); hs C REACTIVE PROTEIN 0.49 MG/DL (0.00-0.50)
== END | disposition home or self-care (01) ==
LOC: LAB 10:41
PROVIDERS: ATTEND Allergy & Immunology
DX: R79.89 Other specified abnormal findings of blood chemistry (principal); N39.0 Urinary tract infection, site not specified
CPT/HCPCS: 36415; 80048; 81000; 85025; 85652; 86141

== ENCOUNTER → 2016-09-21 | Outpatient (CLI) | payer OTHER ==
[2016-09-21 10:20] LABS: BASOPHILS % (AUTO) 0 % (0-10); EOSINOPHILS # (AUTO) 0.3 10^3/uL (0.0-0.3); EOSINOPHILS % (AUTO) 4 % (0-10); LYMPHOCYTES # (AUTO) 2.4 X 10^3 (1.0-4.0); LYMPHOCYTES % (AUTO) 35 % (12-44); MEAN CORPUSCULAR HEMOGLOBIN 33 PG (25-34); MEAN CORPUSCULAR HGB CONC 32 G/DL (32-36); MEAN CORPUSCULAR VOLUME 103 FL (80-99); MEAN PLATELET VOLUME 10.1 FL (7.4-10.4); MONOCYTES # (AUTO) 0.7 X 10^3 (0.0-1.0); MONOCYTES % (AUTO) 10 % (0-12); NEUTROPHILS # (AUTO) 3.3 X 10^3 (1.8-7.8); NEUTROPHILS % (AUTO) 50 % (42-75); PLATELET COUNT 202 10^3/uL (130-400); RED BLOOD COUNT 3.33 10^6/uL (4.35-5.85); RED CELL DISTRIBUTION WIDTH 15.6 % (10.0-14.5); WHITE BLOOD COUNT 6.6 10^3/uL (4.3-11.0)
[2016-09-21 10:23] LABS: BILIRUBIN,URINE NEGATIVE (NEGATIVE); KETONES,URINE NEGATIVE (NEGATIVE); LEUKOCYTE ESTERASE ,URINE 1+ (NEGATIVE); NITRITE,URINE NEGATIVE (NEGATIVE); PH,URINE 6 (5-9); PROTEIN,URINE 2+ (NEGATIVE); UROBILINOGEN,URINE NORMAL (NORMAL)
[2016-09-21 10:32] LABS: HYALINE CASTS, URINE 0-2 /LPF; WBC,URINE RARE /HPF
[2016-09-21 10:33] LABS: CALCIUM 9.5 MG/DL (8.5-10.1); CREATININE SERUM 1.28 MG/DL (0.60-1.30); ICTERUS 0.5 (-100-1.9); POTASSIUM 4.3 MMOL/L (3.6-5.0); hs C REACTIVE PROTEIN 1.13 MG/DL (0.00-0.50)
[2016-09-21 11:08] LABS: ERYTHROCYTE SEDIMENTATION RATE 58 MM/HR (0-30)
== END ==
LOC: LAB 09:59
PROVIDERS: ATTEND Allergy & Immunology
DX: N39.0 Urinary tract infection, site not specified (principal); Z79.899 Other long term (current) drug therapy
CPT/HCPCS: 36415; 80048; 81000; 85025; 85652; 86141

== ENCOUNTER → 2016-10-12 | Outpatient (CLI) | payer OTHER | LOC: PREOP 06:06 | PROVIDERS: ATTEND Surgery | DX: Z53.9 Procedure and treatment not carried out, unspecified reason (principal) ==

== ENCOUNTER → 2017-01-14 | Outpatient (CLI) | payer OTHER ==
[~2017-01-14] MED LIST changes: -MULT-116 PO; +MULT-324 PO
== END ==
LOC: WOUNDCARE 09:15
PROVIDERS: ATTEND Internal Medicine
DX: I50.22 Chronic systolic (congestive) heart failure (principal); I89.0 Lymphedema, not elsewhere classified; E11.622 Type 2 diabetes mellitus with other skin ulcer; L97.211 Non-pressure chronic ulcer of right calf limited to breakdown of skin; L97.221 Non-pressure chronic ulcer of left calf limited to breakdown of skin
CPT/HCPCS: 99214

== ENCOUNTER → 2017-01-21 | Outpatient (CLI) | payer OTHER | LOC: WOUNDCARE 09:10 | PROVIDERS: ATTEND Internal Medicine | DX: E11.622 Type 2 diabetes mellitus with other skin ulcer (principal); L97.211 Non-pressure chronic ulcer of right calf limited to breakdown of skin; L97.221 Non-pressure chronic ulcer of left calf limited to breakdown of skin; I89.0 Lymphedema, not elsewhere classified; I50.22 Chronic systolic (congestive) heart failure | CPT/HCPCS: 99212 ==

== ENCOUNTER → 2017-01-28 | Outpatient (CLI) | payer OTHER | LOC: WOUNDCARE 09:12 | PROVIDERS: ATTEND Internal Medicine | DX: E11.622 Type 2 diabetes mellitus with other skin ulcer (principal); L97.211 Non-pressure chronic ulcer of right calf limited to breakdown of skin; L97.221 Non-pressure chronic ulcer of left calf limited to breakdown of skin; I89.0 Lymphedema, not elsewhere classified; I50.22 Chronic systolic (congestive) heart failure ==

== ENCOUNTER → 2017-02-04 | Outpatient (CLI) | payer OTHER ==
[~2017-02-04] MED LIST changes: -METO-270 PO; +METO-387 PO
== END ==
LOC: WOUNDCARE 09:15
PROVIDERS: ATTEND Internal Medicine
DX: I50.22 Chronic systolic (congestive) heart failure (principal); I89.0 Lymphedema, not elsewhere classified; E11.622 Type 2 diabetes mellitus with other skin ulcer; L97.211 Non-pressure chronic ulcer of right calf limited to breakdown of skin; L97.221 Non-pressure chronic ulcer of left calf limited to breakdown of skin

== ENCOUNTER → 2017-02-08 | Outpatient (CLI) | payer OTHER ==
[~2017-02-08] MED LIST changes: +METO-270 PO; -METO-387 PO
== END ==
LOC: WOUNDCARE 15:00
PROVIDERS: ATTEND Surgery
DX: I89.0 Lymphedema, not elsewhere classified (principal)

== ENCOUNTER → 2017-02-11 | Outpatient (CLI) | payer OTHER ==
[~2017-02-11] MED LIST changes: -METO-270 PO; +METO-387 PO
== END ==
LOC: WOUNDCARE 09:32
PROVIDERS: ATTEND Internal Medicine
DX: I50.22 Chronic systolic (congestive) heart failure (principal); E11.622 Type 2 diabetes mellitus with other skin ulcer; L97.211 Non-pressure chronic ulcer of right calf limited to breakdown of skin; L97.221 Non-pressure chronic ulcer of left calf limited to breakdown of skin; I89.0 Lymphedema, not elsewhere classified
CPT/HCPCS: 97597

== ENCOUNTER → 2017-02-17 | Outpatient (CLI) | payer OTHER | LOC: WOUNDCARE 14:26 | PROVIDERS: ATTEND Surgery | DX: I89.0 Lymphedema, not elsewhere classified (principal) ==

== ENCOUNTER → 2017-02-25 | Outpatient (CLI) | payer OTHER | LOC: WOUNDCARE 09:06 | PROVIDERS: ATTEND Internal Medicine | DX: I50.22 Chronic systolic (congestive) heart failure (principal); I89.0 Lymphedema, not elsewhere classified; E11.622 Type 2 diabetes mellitus with other skin ulcer; L97.211 Non-pressure chronic ulcer of right calf limited to breakdown of skin; L97.221 Non-pressure chronic ulcer of left calf limited to breakdown of skin | CPT/HCPCS: 99212 ==

== ENCOUNTER 2017-03-02 15:45 | Outpatient (RCR) | payer OTHER | END 2017-03-02 16:30 | disposition home or self-care (01) | PROVIDERS: ATTEND Internal Medicine | DX: I50.22 Chronic systolic (congestive) heart failure (principal); I89.0 Lymphedema, not elsewhere classified; E11.622 Type 2 diabetes mellitus with other skin ulcer; L97.211 Non-pressure chronic ulcer of right calf limited to breakdown of skin; L97.221 Non-pressure chronic ulcer of left calf limited to breakdown of skin ==

== ENCOUNTER → 2017-04-08 | Outpatient (CLI) | payer OTHER ==
[~2017-04-08] MED LIST changes: -FERR-74 PO; +FERR325T18 PO
== END ==
LOC: CARD 14:32
PROVIDERS: ATTEND Nurse Practitioner Family
DX: I42.0 Dilated cardiomyopathy (principal); I11.0 Hypertensive heart disease with heart failure; I50.22 Chronic systolic (congestive) heart failure; J43.8 Other emphysema; R09.02 Hypoxemia; G47.33 Obstructive sleep apnea (adult) (pediatric)
CPT/HCPCS: 93306

== ENCOUNTER → 2017-04-20 | Outpatient (CLI) | payer OTHER ==
[~2017-04-20] MED LIST changes: +CATHETER FLUSH 10 ML SYR IV PRN; +HEParin (CENTRAL IV FLUSH) 500 UNIT/5 ML SYR ONE
--- NOTE | 2017-04-22 11:18 | STRESS TEST ---
DATE OF SERVICE: 04/20/2017 RADIONUCLIDE VENTRICULOGRAPHY ORDERING PHYSICIAN: Pretty Christiansen APRN. PRIMARY PHYSICIAN: Dr. Vee. OTHER PHYSICIAN: Lee Montenegro MD, MA, FACP, FACC. CLINICAL DIAGNOSIS: Cardiomyopathy. Autologous red blood cells tagged with 32.1 mCi of technetium-99m were used for this study. shows global hypokinesis of the left ventricle. Left ventricular ejection fraction is calculated to be 25%. CONCLUSIONS: Global hypokinesis of the left ventricle with a calculated ejection fraction of 25%. Job ID: [id number] DocumentID: [id number] Dictated Date: 04/22/2017 09:47:12 Manager [employer] Date: 04/22/2017 11:17:33 Dictated By: LEE MONTENEGRO MD, MA, FACP, FACC,
== END ==
LOC: CARD 13:53
PROVIDERS: ATTEND Nurse Practitioner Family
DX: I42.0 Dilated cardiomyopathy (principal)
CPT/HCPCS: 78472

== ENCOUNTER → 2017-04-26 | Outpatient (CLI) | payer OTHER ==
[~2017-04-26] MED LIST changes: -CATHETER FLUSH 10 ML SYR IV PRN; -HEParin (CENTRAL IV FLUSH) 500 UNIT/5 ML SYR ONE
[2017-04-26 15:40] LABS: CALCIUM 9.4 MG/DL (8.5-10.1); CREATININE SERUM 1.44 MG/DL (0.60-1.30); MAGNESIUM 2.1 MG/DL (1.8-2.4); POTASSIUM 4.4 MMOL/L (3.6-5.0)
== END ==
LOC: LAB 14:54
PROVIDERS: ATTEND Nurse Practitioner Family
DX: I13.0 Hypertensive heart and chronic kidney disease with heart failure and stage 1 through stage 4 chronic kidney disease, or unspecified chronic kidney disease (principal); I50.22 Chronic systolic (congestive) heart failure; N18.3 Chronic kidney disease, stage 3 (moderate); I42.0 Dilated cardiomyopathy; G47.33 Obstructive sleep apnea (adult) (pediatric)
CPT/HCPCS: 36415; 80048; 83735

== ENCOUNTER → 2017-07-22 | Outpatient (CLI) | payer OTHER ==
[2017-07-22 11:59] LABS: BASOPHILS % (AUTO) 0 % (0-10); EOSINOPHILS % (AUTO) 1 % (0-10); HEMATOCRIT 38 % (35-52); HEMOGLOBIN 12.1 G/DL (11.5-16.0); LYMPHOCYTES # (AUTO) 0.8 X 10^3 (1.0-4.0); LYMPHOCYTES % (AUTO) 11 % (12-44); MEAN CORPUSCULAR HEMOGLOBIN 29 PG (25-34); MEAN CORPUSCULAR HGB CONC 32 G/DL (32-36); MEAN CORPUSCULAR VOLUME 93 FL (80-99); MEAN PLATELET VOLUME 11.5 FL (7.4-10.4); MONOCYTES # (AUTO) 0.8 X 10^3 (0.0-1.0); MONOCYTES % (AUTO) 12 % (0-12); NEUTROPHILS # (AUTO) 5.4 X 10^3 (1.8-7.8); NEUTROPHILS % (AUTO) 76 % (42-75); PLATELET COUNT 205 10^3/uL (130-400); RED BLOOD COUNT 4.12 10^6/uL (4.35-5.85); RED CELL DISTRIBUTION WIDTH 18.7 % (10.0-14.5)
[2017-07-22 12:13] LABS: INR 1.4 (0.8-1.4); PROTHROMBIN TIME PATIENT 16.9 SEC (12.2-14.7)
[2017-07-22 12:17] LABS: ALBUMIN 3.3 GM/DL (3.2-4.5); BILIRUBIN,TOTAL 0.9 MG/DL (0.1-1.0); CREATININE SERUM 1.27 MG/DL (0.60-1.30); POTASSIUM 4.5 MMOL/L (3.6-5.0); TOTAL PROTEIN 6.6 GM/DL (6.4-8.2)
== END ==
LOC: LAB 11:35
PROVIDERS: ATTEND Family Medicine
DX: Z00.00 Encounter for general adult medical examination without abnormal findings (principal); E11.9 Type 2 diabetes mellitus without complications; N18.3 Chronic kidney disease, stage 3 (moderate); R06.09 Other forms of dyspnea; K76.0 Fatty (change of) liver, not elsewhere classified
CPT/HCPCS: 36415; 80053; 80061; 83036; 84443; 85025; 85610

== ENCOUNTER → 2017-07-23 | Outpatient (CLI) | payer OTHER | LOC: LAB 14:39 | PROVIDERS: ATTEND Family Medicine | DX: I50.9 Heart failure, unspecified (principal) | CPT/HCPCS: 36415; 83880 ==

== ENCOUNTER → 2017-08-20 | Outpatient (CLI) | payer OTHER ==
[2017-08-20 10:56] LABS: BASOPHILS % (AUTO) 0 % (0-10); EOSINOPHILS % (AUTO) 0 % (0-10); HEMATOCRIT 38 % (35-52); HEMOGLOBIN 12.1 G/DL (11.5-16.0); LYMPHOCYTES # (AUTO) 1.1 X 10^3 (1.0-4.0); LYMPHOCYTES % (AUTO) 15 % (12-44); MEAN CORPUSCULAR HEMOGLOBIN 28 PG (25-34); MEAN CORPUSCULAR HGB CONC 32 G/DL (32-36); MEAN CORPUSCULAR VOLUME 88 FL (80-99); MONOCYTES # (AUTO) 0.9 X 10^3 (0.0-1.0); MONOCYTES % (AUTO) 12 % (0-12); NEUTROPHILS # (AUTO) 5.2 X 10^3 (1.8-7.8); NEUTROPHILS % (AUTO) 72 % (42-75); PLATELET COUNT 268 10^3/uL (130-400); RED BLOOD COUNT 4.32 10^6/uL (4.35-5.85); RED CELL DISTRIBUTION WIDTH 17.2 % (10.0-14.5); WHITE BLOOD COUNT 7.1 10^3/uL (4.3-11.0)
[2017-08-20 11:21] LABS: ALBUMIN 3.8 GM/DL (3.2-4.5); BILIRUBIN,TOTAL 1.5 MG/DL (0.1-1.0); CALCIUM 9.5 MG/DL (8.5-10.1); CREATININE SERUM 1.48 MG/DL (0.60-1.30); POTASSIUM 4.1 MMOL/L (3.6-5.0); TOTAL PROTEIN 7.3 GM/DL (6.4-8.2)
== END ==
LOC: LAB 10:31
PROVIDERS: ATTEND Surgery
DX: E11.622 Type 2 diabetes mellitus with other skin ulcer (principal); L97.211 Non-pressure chronic ulcer of right calf limited to breakdown of skin; R22.41 Localized swelling, mass and lump, right lower limb
CPT/HCPCS: 36415; 80053; 83036; 84134; 85025

== ENCOUNTER → 2017-08-20 | Outpatient (CLI) | payer OTHER | LOC: WOUNDCARE 08:28 | PROVIDERS: ATTEND Surgery | DX: L97.211 Non-pressure chronic ulcer of right calf limited to breakdown of skin (principal); L97.221 Non-pressure chronic ulcer of left calf limited to breakdown of skin; I87.333 Chronic venous hypertension (idiopathic) with ulcer and inflammation of bilateral lower extremity; E11.622 Type 2 diabetes mellitus with other skin ulcer; R22.41 Localized swelling, mass and lump, right lower limb; I70.242 Atherosclerosis of native arteries of left leg with ulceration of calf | CPT/HCPCS: 99214 ==

== ENCOUNTER → 2017-08-24 | Outpatient (CLI) | payer OTHER ==
--- NOTE | 2017-08-24 17:42 | Diagnostic Imaging Report ---
INDICATION: Mass posterior heel region with swelling. TIME OF EXAM: 4:38 PM FINDINGS: Three views of the right foot were obtained. BB marker at the level of the posterior calcaneus is noted. This appears to correspond to a large bony excrescence involving the posterior calcaneus, suggestive of a large enthesophyte from the Achilles insertion. No fractures are identified. Midfoot unremarkable. Metatarsals and phalanges are intact. IMPRESSION: Large enthesophyte appears to account for the palpable abnormality of the posterior calcaneus. Dictated by: Dictated on workstation # [id number]
== END ==
LOC: RAD 16:05
PROVIDERS: ATTEND Surgery
DX: R22.41 Localized swelling, mass and lump, right lower limb (principal); E11.622 Type 2 diabetes mellitus with other skin ulcer; L97.211 Non-pressure chronic ulcer of right calf limited to breakdown of skin
CPT/HCPCS: 73630

== ENCOUNTER → 2017-08-25 | Outpatient (CLI) | payer OTHER | LOC: WOUNDCARE 15:25 | PROVIDERS: ATTEND Surgery | DX: E11.622 Type 2 diabetes mellitus with other skin ulcer (principal); L97.211 Non-pressure chronic ulcer of right calf limited to breakdown of skin | CPT/HCPCS: 99213 ==

== ENCOUNTER → 2018-01-31 | Outpatient (CLI) | payer OTHER ==
[2018-01-31 16:03] LABS: BASOPHILS % (AUTO) 1 % (0-10); EOSINOPHILS # (AUTO) 0.2 10^3/uL (0.0-0.3); EOSINOPHILS % (AUTO) 3 % (0-10); HEMATOCRIT 39 % (35-52); HEMOGLOBIN 12.2 G/DL (11.5-16.0); LYMPHOCYTES # (AUTO) 1.5 X 10^3 (1.0-4.0); LYMPHOCYTES % (AUTO) 25 % (12-44); MEAN CORPUSCULAR HEMOGLOBIN 31 PG (25-34); MEAN CORPUSCULAR HGB CONC 31 G/DL (32-36); MEAN CORPUSCULAR VOLUME 100 FL (80-99); MEAN PLATELET VOLUME 10.4 FL (7.4-10.4); MONOCYTES # (AUTO) 0.9 X 10^3 (0.0-1.0); MONOCYTES % (AUTO) 14 % (0-12); NEUTROPHILS # (AUTO) 3.6 X 10^3 (1.8-7.8); NEUTROPHILS % (AUTO) 58 % (42-75); PLATELET COUNT 205 10^3/uL (130-400); RED BLOOD COUNT 3.94 10^6/uL (4.35-5.85); WHITE BLOOD COUNT 6.2 10^3/uL (4.3-11.0)
[2018-01-31 16:19] LABS: ALBUMIN 3.9 GM/DL (3.2-4.5); BILIRUBIN,TOTAL 0.6 MG/DL (0.1-1.0); CALCIUM 9.7 MG/DL (8.5-10.1); CREATININE SERUM 1.5 MG/DL (0.60-1.30); TOTAL PROTEIN 7.1 GM/DL (6.4-8.2)
== END ==
LOC: LAB 15:46
PROVIDERS: ATTEND Family Medicine
DX: I50.23 Acute on chronic systolic (congestive) heart failure (principal); N18.9 Chronic kidney disease, unspecified; R06.00 Dyspnea, unspecified
CPT/HCPCS: 36415; 80053; 83880; 85025

== ENCOUNTER → 2018-06-02 | Outpatient (CLI) | payer OTHER ==
[~2018-06-02] MED LIST changes: -MULT-324 PO; +MULT-834 PO
[2018-06-02 13:05] LABS: HEMOGLOBIN 12.6 G/DL (11.5-16.0); MEAN PLATELET VOLUME 11.2 FL (7.4-10.4); RED CELL DISTRIBUTION WIDTH 22.2 % (10.0-14.5); WHITE BLOOD COUNT 6.7 10^3/uL (4.3-11.0)
--- NOTE | 2018-06-02 13:13 | Diagnostic Imaging Report ---
INDICATION: Right lower quadrant abdominal pain. Left-sided abdominal pain. COMPARISON: CT dated 10/21/2015. FINDINGS: Supine and upright views the abdomen demonstrate nonobstructive small bowel gas pattern. Mild amount of air and stool are seen scattered throughout the colon. No abnormal air-fluid levels or large collection of free intraperitoneal air is seen. No abnormal extraosseous calcifications or radiopaque foreign bodies are identified. Postsurgical changes of previous lap band surgery are noted. Bony structures are age-appropriate. IMPRESSION: 1. Nonobstructive small bowel gas pattern. Dictated by: Dictated on workstation # [id number]
[2018-06-02 13:18] LABS: ALBUMIN 3.9 GM/DL (3.2-4.5); BILIRUBIN,TOTAL 1.4 MG/DL (0.1-1.0); CALCIUM 9.3 MG/DL (8.5-10.1); CREATININE SERUM 1.57 MG/DL (0.60-1.30); POTASSIUM 4.3 MMOL/L (3.6-5.0); TOTAL PROTEIN 7.3 GM/DL (6.4-8.2)
== END ==
LOC: RAD 12:40
PROVIDERS: ATTEND Family Medicine
DX: R10.11 Right upper quadrant pain (principal); R10.31 Right lower quadrant pain; Z98.84 Bariatric surgery status
CPT/HCPCS: 36415; 74019; 80053; 83690; 85027

== ENCOUNTER 2018-10-03 12:50 | Outpatient (RCR) | payer OTHER ==
[~2018-10-03 12:50] MED LIST changes: -OMEP20CA12 PO; +OMEP20CA13 PO
== END 2019-01-01 | disposition home or self-care (01) ==
LOC: RT 12:50
PROVIDERS: ATTEND Nurse Practitioner Family
DX: J43.9 Emphysema, unspecified (principal); N18.3 Chronic kidney disease, stage 3 (moderate); J45.909 Unspecified asthma, uncomplicated; R09.02 Hypoxemia; E66.01 Morbid (severe) obesity due to excess calories; Z68.41 Body mass index [BMI] 40.0-44.9, adult
CPT/HCPCS: 99211

== ENCOUNTER → 2018-10-11 | Outpatient (CLI) | payer OTHER ==
[~2018-10-11] MED LIST changes: +OMEP20CA12 PO; -OMEP20CA13 PO; +RT-ALBUTEROL SULF 2.5 MG/3 ML PRE-MIX VIAL INH ONE
== END ==
LOC: RT 12:30
PROVIDERS: ATTEND Nurse Practitioner Family
DX: J43.9 Emphysema, unspecified (principal); N18.3 Chronic kidney disease, stage 3 (moderate); E66.01 Morbid (severe) obesity due to excess calories
CPT/HCPCS: 94060; 94640; 94726; 94729